=== PATIENT | female | born 1985 | race Caucasian/White ===

== ENCOUNTER → 2021-11-07 | Outpatient (CLI) | payer OTHER, MEDICAID ==
[~2021-11-07] MED LIST: DEPRESSION MED PO; FLEXERIL5 MG PO; MOTRIN 800800 MG/TAB PO; NORMODYNE100 MG PO
== END ==
LOC: COL.LAB 16:17
DX: Z32.00 Encounter for pregnancy test, result unknown (principal)

== ENCOUNTER 2022-02-26 21:38 | Emergency (ER) | payer OTHER, MEDICAID ==
[~2022-02-26] VITALS: Ht 172.7 cm; Wt 84.1 kg
[2022-02-26 21:41] VITALS: TEMP 97.7
[2022-02-26 22:38] VITALS: BP 144/81; PULSE 89
== END 2022-02-26 22:38 | disposition home or self-care (01) ==
LOC: COL.ER 21:38
DX: O9A.212 Injury, poisoning and certain other consequences of external causes complicating pregnancy, second trimester (principal); S30.1XXA Contusion of abdominal wall, initial encounter; Z28.310 Unvaccinated for COVID-19; Z3A.19 19 weeks gestation of pregnancy; Y04.8XXA Assault by other bodily force, initial encounter

== ENCOUNTER 2022-06-23 01:38 | Emergency (ER) | payer OTHER, MEDICAID ==
[~2022-06-23] VITALS: Ht 172.7 cm; Wt 97.7 kg
[~2022-06-23 01:38] MED LIST changes: +ASPIRIN 81M81 MG/TA2 PO; +LOVENOX 3030 MG/0.3; +PRENATAL TABLET PO; +PROGESTERO50 MG/1 ML
[2022-06-23 01:44] VITALS: TEMP 97.5
[2022-06-23 02:08] LABS: HEMOGLOBIN 11.1 g/dl (12.5-16.0); MEAN CELL VOLUME 91 fl (80.0-100.0); MEAN CORPUSCULAR HEMOGLOBIN 30 pg (27-31); MEAN CORPUSCULAR HGB CONC 33 g/dl (33.0-37.0); MEAN PLATELET VOLUME 10.8 fl (7.4-10.4); PLATELET COUNT 273 K/mm3 (130-400); RED BLOOD COUNT 3.71 M/mm3 (4.10-5.30); REDCELL DISTRIBUTION WIDTH-CV 13.1 % (11.5-14.5)
[2022-06-23 02:14] LABS: HEMATOCRIT 33.8 % (37.0-47.0)
[2022-06-23 02:16] LABS: COLLECTION METHOD CLEAN CATCH
[2022-06-23 02:21] LABS: CALCIUM 9.3 mg/dL (8.4-10.2); CREATININE, serum 0.79 mg/dL (0.57-1.11); POTASSIUM 3.8 mmol/L (3.5-4.5); TOTAL PROTEIN 6.8 gm/dL (6.2-8.1)
[2022-06-23 02:24] LABS: URINE BACTERIA Rare /hpf (NONE SEEN); URINE RBC 0-2 /hpf (0-2)
[2022-06-23 02:26] LABS: PH 6.5 (5.0-8.5); URINE APPEARANCE Clear (CLEAR/HAZY); URINE BLOOD TRACE-LYSED (NEGATIVE); URINE COLOR Yellow (YELLOW); URINE GLUCOSE Negative (NEGATIVE); URINE KETONE Negative (NEGATIVE); URINE NITRATE Negative (NEGATIVE); URINE PROTEIN(semi-quant) Negative (NEGATIVE); URINE UROBILINOGEN 0.2 E.U/dL (0.2-1.0)
[2022-06-23 02:30] LABS: BAND 2 % (0-10); HYPOCHROMIA 1+; LYMPHOCYTE 30 % (20.0-51.0); METAMYELOCYTE 1 % (0-0); NEUTROPHILS 60 % (42.0-75.2); PLATELET ESTIMATE NORMAL (NORMAL)
[2022-06-23] MEDS ORDERED: TRANDATE300 MG PO (02:31)
[2022-06-23 02:45] LABS: BILIRUBIN,TOTAL 0.2 mg/dL (0.2-1.2)
[2022-06-23 03:25] VITALS: BP 159/91; PULSE 71
== END 2022-06-23 03:26 | disposition home or self-care (01) ==
LOC: COL.ER 01:38
PROVIDERS: Nurse Practitioner Primary Care
DX: O16.5 Unspecified maternal hypertension, complicating the puerperium (principal); R94.5 Abnormal results of liver function studies; Z28.310 Unvaccinated for COVID-19
CPT/HCPCS: J0360; J1200